=== PATIENT | male | born 1960 | race Caucasian/White ===

== ENCOUNTER 2021-09-26 14:18 | Inpatient (IN) | payer OTHER ==
[~2021-09-26] VITALS: Ht 180.3 cm; Wt 67.7 kg
[2021-09-26 15:20] LABS: HEMOGLOBIN 11.5 gm/dl (14.0-17.5); RED BLOOD COUNT 4.04 M/UL (4.20-5.50)
[2021-09-26 16:06] LABS: BUN/CREATININE RATIO 13 (0-10)
[2021-09-26] MEDS ORDERED: PROAIR HFA8.5 GM INH (17:46)
[2021-09-26] MEDS ORDERED: AMLODIPINE BESY10 MG PO (17:47)
[2021-09-26] MEDS ORDERED: CLONIDINE HCL0.1 MG PO (17:47)
[2021-09-26] MEDS ORDERED: ESOMEPRAZOLE MA40 MG PO (17:48)
[2021-09-26] MEDS ORDERED: GABAPENTIN800 MG PO (17:50)
[2021-09-26] MEDS ORDERED: LISINOPRIL20 MG PO (17:51)
[2021-09-26] MEDS ORDERED: SUCRALFATE1 GM PO (17:51)
[2021-09-26] MEDS ORDERED: AZELASTINE137 MCG/0. (17:52)
[2021-09-26] MEDS ORDERED: HYDROCODON-ACE1 EAC6 PO (17:53)
[2021-09-26] MEDS ORDERED: DIAZEPAM5 MG PO (17:53)
[2021-09-27 06:26] LABS: HEMOGLOBIN 10.4 gm/dl (14.0-17.5); RED BLOOD COUNT 3.67 M/UL (4.20-5.50)
[2021-09-27 06:38] LABS: WHITE BLOOD COUNT 25.3 K/UL (4.5-11.0)
[2021-09-27 06:52] LABS: BUN/CREATININE RATIO 18 (0-10)
[2021-09-28 06:05] LABS: HEMOGLOBIN 11.6 gm/dl (14.0-17.5)
[2021-09-28 06:18] LABS: RED BLOOD COUNT 4.07 M/UL (4.20-5.50)
[2021-09-28 06:29] LABS: BUN/CREATININE RATIO 20 (0-10)
[2021-09-29 06:30] LABS: HEMOGLOBIN 10.5 gm/dl (14.0-17.5); WHITE BLOOD COUNT 29.9 K/UL (4.5-11.0)
[2021-09-29 06:31] LABS: RED BLOOD COUNT 3.63 M/UL (4.20-5.50)
[2021-09-29 06:54] LABS: BUN/CREATININE RATIO 24 (0-10)
[2021-09-29] MEDS ORDERED: ELIQUIS5 MG PO (12:45)
[2021-09-29] MEDS ORDERED: PREDNISONE 10 M10 MG PO (12:45)
[2021-09-29] MEDS ORDERED: LEVOFLOXACIN500 MG PO (12:45)
[2021-09-29] MEDS ORDERED: IPRAT-ALBUT 0.5-3 ML NEB (12:45)
[2021-09-29] MEDS ORDERED: NICOTINE PATCH1 EAC2 TOP (12:45)
[2021-09-29] MEDS ORDERED: ELIQUIS 5 MG TAB5 MG PO (12:45)
[2021-10-01 09:38] LABS: WHITE BLOOD COUNT 34.4 K/UL (4.5-11.0)
== END 2021-09-29 15:37 | disposition home or self-care (01) | DRG 175 ==
LOC: ER1 14:18 → CDU 16:51 → MED SURG 4 16:51
PROVIDERS: Emergency Medicine; Physician Assistant; ADMIT Internal Medicine
PROC: B24BZZZ Ultrasonography of Heart with Aorta (ICD-10-PCS; principal; 2021-09-28)
DX: I26.99 Other pulmonary embolism without acute cor pulmonale (principal); J96.21 Acute and chronic respiratory failure with hypoxia; J96.22 Acute and chronic respiratory failure with hypercapnia; I82.403 Acute embolism and thrombosis of unspecified deep veins of lower extremity, bilateral; C91.11 Chronic lymphocytic leukemia of B-cell type in remission; R59.1 Generalized enlarged lymph nodes; I10 Essential (primary) hypertension; F17.200 Nicotine dependence, unspecified, uncomplicated; R91.8 Other nonspecific abnormal finding of lung field; Z20.822 Contact with and (suspected) exposure to COVID-19; J43.9 Emphysema, unspecified; D64.9 Anemia, unspecified; Z79.01 Long term (current) use of anticoagulants; Z82.49 Family history of ischemic heart disease and other diseases of the circulatory system; Z79.899 Other long term (current) drug therapy; Z85.828 Personal history of other malignant neoplasm of skin; Z99.81 Dependence on supplemental oxygen; Z90.89 Acquired absence of other organs; Z98.890 Other specified postprocedural states; Z83.3 Family history of diabetes mellitus; Z91.14 Patient's other noncompliance with medication regimen; Z79.52 Long term (current) use of systemic steroids
CPT/HCPCS: ECHO; 36415; 36600; 71045; 71250; 80048; 80053; 81001; 82550; 82553; 82803; 83036; 83605; 83735; 83880; 84484; 85025; 86140; 87040; 93005; 93306; 94640; 94664; 94760; 96374; 99285; J1650; J1956; J2270; J2920; U0002

== ENCOUNTER 2021-10-13 18:48 | Observation (INO) | payer OTHER ==
[~2021-10-13] VITALS: Ht 180.3 cm; Wt 68.0 kg
[~2021-10-13 18:48] MED LIST: AMLODIPINE BESY10 MG PO; AZELASTINE137 MCG/0.; CLONIDINE HCL0.1 MG PO; DIAZEPAM5 MG PO; ELIQUIS 5 MG TAB5 MG PO; ELIQUIS5 MG PO; ESOMEPRAZOLE MA40 MG PO; GABAPENTIN800 MG PO; HYDROCODON-ACE1 EAC6 PO; IPRAT-ALBUT 0.5-3 ML NEB; LEVOFLOXACIN500 MG PO; LISINOPRIL20 MG PO; NICOTINE PATCH1 EAC2 TOP; PREDNISONE 10 M10 MG PO; PROAIR HFA8.5 GM INH; SUCRALFATE1 GM PO
[2021-10-13 19:58] LABS: HEMOGLOBIN 11.8 gm/dl (14.0-17.5); RED BLOOD COUNT 4.12 M/UL (4.20-5.50)
[2021-10-13 20:22] LABS: WHITE BLOOD COUNT 45.1 K/UL (4.5-11.0)
[2021-10-13 20:34] LABS: BUN/CREATININE RATIO 24 (0-10)
[2021-10-14 05:36] LABS: HEMOGLOBIN 10.9 gm/dl (14.0-17.5); RED BLOOD COUNT 3.9 M/UL (4.20-5.50)
[2021-10-14 05:56] LABS: WHITE BLOOD COUNT 43.2 K/UL (4.5-11.0)
[2021-10-14 06:05] LABS: BUN/CREATININE RATIO 31 (0-10)
[2021-10-14] MEDS ORDERED: HYDROCODON-ACE1 EAC6 PO (13:04)
[2021-10-15 06:53] LABS: HEMOGLOBIN 10.2 gm/dl (14.0-17.5); RED BLOOD COUNT 3.66 M/UL (4.20-5.50)
[2021-10-15 07:14] LABS: BUN/CREATININE RATIO 33 (0-10)
[2021-10-15 07:27] LABS: WHITE BLOOD COUNT 38.3 K/UL (4.5-11.0)
[2021-10-15] MEDS ORDERED: ATORVASTATIN CA10 MG PO (08:15)
[2021-10-15] MEDS ORDERED: ASPIRIN EC81 MG PO (08:15)
== END 2021-10-15 11:55 | disposition home health service (06) ==
LOC: ER1 18:48 → CDU 10-14 03:16 → MED SURG 4 10-14 10:36
PROVIDERS: Family Medicine; Internal Medicine; ADMIT Internal Medicine
DX: I63.9 Cerebral infarction, unspecified (principal); H53.9 Unspecified visual disturbance; R77.8 Other specified abnormalities of plasma proteins; E78.5 Hyperlipidemia, unspecified; I10 Essential (primary) hypertension; J44.9 Chronic obstructive pulmonary disease, unspecified; C91.10 Chronic lymphocytic leukemia of B-cell type not having achieved remission; F17.210 Nicotine dependence, cigarettes, uncomplicated; J96.11 Chronic respiratory failure with hypoxia; Z99.81 Dependence on supplemental oxygen; Z86.718 Personal history of other venous thrombosis and embolism; Z86.711 Personal history of pulmonary embolism; Z79.01 Long term (current) use of anticoagulants; Z79.899 Other long term (current) drug therapy
CPT/HCPCS: 36600; 70450; 70496; 70498; 70551; 71045; 80048; 80053; 80061; 82140; 82550; 82553; 82803; 83605; 83735; 83880; 84484; 85025; 85610; 85730; 87040; 93005; 93880; 94760; 96372; 97165; 99285; G0378; J1650; J1885; Q9967

== ENCOUNTER 2021-11-10 20:16 | Inpatient (IN) | payer OTHER ==
[~2021-11-10] VITALS: Ht 180.3 cm; Wt 64.9 kg
[~2021-11-10 20:16] MED LIST changes: +ASPIRIN EC81 MG PO; +ATORVASTATIN CA10 MG PO
[2021-11-10 20:43] LABS: RED BLOOD COUNT 1.34 M/UL (4.20-5.50)
[2021-11-10 21:03] LABS: HEMOGLOBIN 2.9 gm/dl (14.0-17.5); WHITE BLOOD COUNT 64.9 K/UL (4.5-11.0)
[2021-11-10 21:11] LABS: BUN/CREATININE RATIO 53 (0-10)
[2021-11-11 05:09] LABS: RED BLOOD COUNT 1.66 M/UL (4.20-5.50)
[2021-11-11 05:13] LABS: WHITE BLOOD COUNT 65.5 K/UL (4.5-11.0)
[2021-11-11 05:28] LABS: BUN/CREATININE RATIO 62 (0-10)
[2021-11-11] MEDS ORDERED: ASPIRIN EC81 MG PO (09:14)
[2021-11-11] MEDS ORDERED: ATORVASTATIN CA10 MG PO (09:14)
[2021-11-11] MEDS ORDERED: [UNRECOGNIZED DRUG - OTHER] (12:24)
[2021-11-11] MEDS ORDERED: STEROIDS (12:24)
[2021-11-11] MEDS ORDERED: [UNRECOGNIZED DRUG - OTHER] (12:24)
[2021-11-11] MEDS ORDERED: PROTONIX (12:24)
--- NOTE | 2021-11-11 12:28 | NUR ---
PT ON WAITING LIST AT [facility]. DR. ANGLIN HAS ACCEPTED THE PT PER DR. LESTER
[2021-11-11 19:34] LABS: CANDIDA ALBICANS Not Detected (Negative); CANDIDA KRUSEI Not Detected (Negative); CANDIDA TROPICALIS Not Detected (Negative); ESCHERICHIA COLI Not Detected (Negative); HAEMOPHILUS INFLUENZAE Not Detected (Negative); KLEBSIELLA OXYTOCA Not Detected (Negative); KLEBSIELLA PNEUMONIAE Not Detected (Negative); KPC-CARBAPENEM-RESISTANCE GENE Not Detected (Negative); PROTEUS Not Detected (Negative); PSEUDOMONAS AERUGINOSA Not Detected (Negative); SERRATIA MARCESANS Not Detected (Negative); STAPHYLOCOCCUS AUREUS Not Detected (Negative); STREP AGALACTIAE (GROUP B) Not Detected (Negative); STREP PYOGENES (GROUP A) Not Detected (Negative); STREPTOCOCCUS Not Detected (Negative); vanA/B (VANCOMYCIN RESIST GENE Not Detected (Negative)
[2021-11-11 20:51] LABS: STAPHYLOCOCCUS DETECTED (Negative)
[2021-11-12 04:09] LABS: HEMOGLOBIN 8.5 gm/dl (14.0-17.5)
[2021-11-12 04:12] LABS: RED BLOOD COUNT 3.12 M/UL (4.20-5.50); WHITE BLOOD COUNT 71.8 K/UL (4.5-11.0)
[2021-11-12 04:19] LABS: BUN/CREATININE RATIO 51 (0-10)
[2021-11-12 08:14] LABS: HBSAG SCREEN Negative (Negative); HCV AB <0.1 (0.0-0.9); HEP A AB, IGM Negative (Negative); HEP B CORE AB, IGM Negative (Negative)
[2021-11-12 10:23] LABS: HEMOGLOBIN 7.3 gm/dl (14.0-17.5)
[2021-11-12 10:36] LABS: RED BLOOD COUNT 2.79 M/UL (4.20-5.50); WHITE BLOOD COUNT 65.2 K/UL (4.5-11.0)
[2021-11-12] MEDS ORDERED: CEFEPIME (15:57)
[2021-11-12] MEDS ORDERED: VANCO (15:57)
[2021-11-12 16:08] LABS: HEMOGLOBIN 7.6 gm/dl (14.0-17.5); RED BLOOD COUNT 2.81 M/UL (4.20-5.50)
[2021-11-12 16:11] LABS: WHITE BLOOD COUNT 71.9 K/UL (4.5-11.0)
== END 2021-11-12 19:24 | disposition short-term general hospital (02) | DRG 871 ==
LOC: ER1 20:16 → CDU 11-11 00:09 → CCU 11-11 00:09
PROVIDERS: Emergency Medicine; Internal Medicine; Internal Medicine Hematology & Oncology; Registered Nurse; ADMIT Internal Medicine
PROC: 30233N1 Transfusion of Nonautologous Red Blood Cells into Peripheral Vein, Percutaneous Approach (ICD-10-PCS; principal; 2021-11-11)
PROC: 3E03329 Introduction of Other Anti-infective into Peripheral Vein, Percutaneous Approach (ICD-10-PCS; 2021-11-11)
PROC: 5A09457 Assistance with Respiratory Ventilation, 24-96 Consecutive Hours, Continuous Positive Airway Pressure (ICD-10-PCS; 2021-11-11)
PROC: 3E043XZ Introduction of Vasopressor into Central Vein, Percutaneous Approach (ICD-10-PCS; 2021-11-12)
PROC: 0BH17EZ Insertion of Endotracheal Airway into Trachea, Via Natural or Artificial Opening (ICD-10-PCS; 2021-11-12)
PROC: 5A1935Z Respiratory Ventilation, Less than 24 Consecutive Hours (ICD-10-PCS; 2021-11-12)
PROC: 05HN33Z Insertion of Infusion Device into Left Internal Jugular Vein, Percutaneous Approach (ICD-10-PCS; 2021-11-12)
PROC: B544ZZA Ultrasonography of Left Jugular Veins, Guidance (ICD-10-PCS; 2021-11-12)
DX: A41.9 Sepsis, unspecified organism (principal); E43 Unspecified severe protein-calorie malnutrition; J96.21 Acute and chronic respiratory failure with hypoxia; K72.00 Acute and subacute hepatic failure without coma; R65.21 Severe sepsis with septic shock; J18.9 Pneumonia, unspecified organism; G93.41 Metabolic encephalopathy; C94.81 Other specified leukemias, in remission; J44.0 Chronic obstructive pulmonary disease with (acute) lower respiratory infection; E87.1 Hypo-osmolality and hyponatremia; D68.9 Coagulation defect, unspecified; D61.818 Other pancytopenia; K92.2 Gastrointestinal hemorrhage, unspecified; Z68.1 Body mass index [BMI] 19.9 or less, adult; L89.321 Pressure ulcer of left buttock, stage 1; D73.5 Infarction of spleen; E86.0 Dehydration; I27.20 Pulmonary hypertension, unspecified; E86.1 Hypovolemia; Z86.73 Personal history of transient ischemic attack (TIA), and cerebral infarction without residual deficits; Z86.718 Personal history of other venous thrombosis and embolism; Z86.711 Personal history of pulmonary embolism; Z98.890 Other specified postprocedural states; Z98.42 Cataract extraction status, left eye; Z82.49 Family history of ischemic heart disease and other diseases of the circulatory system; Z83.3 Family history of diabetes mellitus; Z99.81 Dependence on supplemental oxygen
CPT/HCPCS: 31500; 36415; 36600; 70450; 71045; 76705; 80048; 80053; 80074; 80076; 80307; 81001; 82140; 82272; 82550; 82553; 82607; 82728; 82746; 82803; 82962; 83010; 83540; 83550; 83605; 83615; 83735; 83880; 84100; 84132; 84484; 84550; 85007; 85018; 85025; 85027; 85045; 85610; 85730; 86140; 86850; 86880; 86900; 86901; 86920; 87040; 87077; 87086; 87150; 87186; 93005; 94002; 94660; 94760; 96365; 96366; 96375; 99285; C1751; C9113; J0692; J1170; J1335; J1940; J2250; J2354; J2370; J2405; J2930; J3370; J3430; J7030; J7070; P9016; Q9967